=== PATIENT | female | born 1975 | race Two or more races ===

== ENCOUNTER 2018-06-12 18:17 | Emergency (ER) | payer OTHER ==
[~2018-06-12] VITALS: Ht 165.1 cm; Wt 68.0 kg
[2018-06-12] MEDS ORDERED: SYMBICORT 16010.2 GM (18:25)
[2018-06-12] MEDS ORDERED: 24HOUR ALLERGY10 MG (18:26)
== END 2018-06-12 21:56 | disposition home or self-care (01) ==
LOC: ER
DX: J06.9 Acute upper respiratory infection, unspecified (principal); J11.1 Influenza due to unidentified influenza virus with other respiratory manifestations

== ENCOUNTER 2022-04-05 12:10 | Emergency (ER) | payer OTHER ==
[~2022-04-05] VITALS: Ht 165.1 cm; Wt 79.4 kg
[~2022-04-05 12:10] MED LIST: 24HOUR ALLERGY10 MG; SYMBICORT 16010.2 GM
[2022-04-05] MEDS ORDERED: ZITHROMAX500 MG PO (14:23)
== END 2022-04-05 14:37 | disposition home or self-care (01) ==
LOC: ER 12:10
DX: A49.3 Mycoplasma infection, unspecified site (principal); B34.8 Other viral infections of unspecified site; Z20.828 Contact with and (suspected) exposure to other viral communicable diseases

== ENCOUNTER 2022-07-16 05:53 | Emergency (ER) | payer OTHER ==
[~2022-07-16] VITALS: Ht 165.1 cm; Wt 78.5 kg
[~2022-07-16 05:53] MED LIST changes: +ZITHROMAX500 MG PO
[2022-07-16] MEDS ORDERED: TUSSI PRES-B L480 ML PO (09:28)
== END 2022-07-16 09:41 | disposition home or self-care (01) ==
LOC: ER 05:53 → EMR PED 06:12 → ER 06:12
DX: U07.1 COVID-19 (principal)

== ENCOUNTER 2022-09-03 19:29 | Emergency (ER) | payer OTHER ==
[~2022-09-03] VITALS: Ht 165.1 cm; Wt 78.5 kg
[~2022-09-03 19:29] MED LIST changes: +TUSSI PRES-B L480 ML PO
[2022-09-03] MEDS ORDERED: PROVENTIL HFA6.7 GM IH (19:44)
== END 2022-09-03 21:48 | disposition home or self-care (01) ==
LOC: ER 19:29
DX: J45.909 Unspecified asthma, uncomplicated (principal); Z20.822 Contact with and (suspected) exposure to COVID-19

== ENCOUNTER 2024-05-06 10:21 | Emergency (ER) | payer OTHER ==
[~2024-05-06] VITALS: Ht 165.1 cm; Wt 80.7 kg
[~2024-05-06 10:21] MED LIST changes: +PROVENTIL HFA6.7 GM IH
[2024-05-06] MEDS ORDERED: KETOROLAC TROMETHAMINE 60 MG VIAL IM STA (12:31)
== END 2024-05-06 14:58 | disposition home or self-care (01) ==
LOC: ER 10:23
DX: J10.1 Influenza due to other identified influenza virus with other respiratory manifestations (principal); Z87.09 Personal history of other diseases of the respiratory system; Z20.822 Contact with and (suspected) exposure to COVID-19